=== PATIENT | male | born 1975 | race Caucasian/White ===

== ENCOUNTER 2018-02-05 21:12 | Emergency (ER) | payer OTHER ==
[~2018-02-05] VITALS: Ht 182.9 cm; Wt 145.2 kg
[~2018-02-05 21:12] MED LIST: IBUP800 PO; KETO10 PO; METPRE4DP PO; NAPR220 PO; Naprosyn500 MG PO; Norco 5-325 Ta1 EACH PO; OMEP20ER PO; OXYACE5T PO; PROM25 PO; TRAM50 PO
[2018-02-05] MEDS ORDERED: AMOX250 PO (21:17)
[2018-02-05] MEDS ORDERED: Augmentin 875-1 EACH PO (21:35)
[2018-02-05] MEDS ORDERED: Norco 5-325 Ta1 EACH PO (21:35)
== END 2018-02-05 22:18 | disposition home or self-care (01) ==
LOC: ER 21:12
DX: K02.9 Dental caries, unspecified (principal)
CPT/HCPCS: 99282

== ENCOUNTER → 2025-04-29 | Outpatient (CLI) | payer OTHER ==
[~2025-04-29] MED LIST changes: +AMOX250 PO; +Augmentin 875-1 EACH PO; +Zofran Odt4 MG SL
== END ==
LOC: LAB SHORT 17:02 → LAB 17:02
DX: R82.90 Unspecified abnormal findings in urine (principal)
CPT/HCPCS: 87086